=== PATIENT | male | born 1955 | race Caucasian/White ===

== ENCOUNTER 2020-08-06 10:15 | Emergency (ER) | payer MEDICAID ==
[~2020-08-06] VITALS: Ht 180.3 cm; Wt 86.0 kg
[2020-08-06] MEDS ORDERED: LIDOCAINE HCL/EPINEPHRINE 1%-EPI 1:100,000 20 ML VIAL INFIL ONE (10:45)
[2020-08-06] MEDS ORDERED: BACITRACIN ZINC OINT UDPKT TOP ONE (10:45)
[2020-08-06] MEDS ORDERED: HYDROCODONE/ACETAMINOPHEN 5/325MG TABLET PO ONE (10:45)
[2020-08-06] MEDS ORDERED: IBUP-2029 PO (12:49)
[2020-08-06] MEDS ORDERED: CEPH500T MT (12:49)
[2020-08-06 13:08] VITALS: BP 139/86
== END 2020-08-06 13:08 | disposition home or self-care (01) ==
LOC: ER 10:15
DX: S51.811A Laceration without foreign body of right forearm, initial encounter (principal); W01.0XXA Fall on same level from slipping, tripping and stumbling without subsequent striking against object, initial encounter; Y93.9 Activity, unspecified; Y92.89 Other specified places as the place of occurrence of the external cause
CPT/HCPCS: 12006; 99284; Z7610; 99285

== ENCOUNTER 2020-08-08 08:15 | Emergency (ER) | payer MEDICAID ==
[~2020-08-08] VITALS: Ht 172.7 cm; Wt 85.0 kg
[~2020-08-08 08:15] MED LIST: CEPH500T MT; IBUP-2029 PO
[2020-08-08 08:50] VITALS: BP 143/82
== END 2020-08-08 08:52 | disposition home or self-care (01) ==
LOC: ER 08:26
DX: Z48.00 Encounter for change or removal of nonsurgical wound dressing (principal)
CPT/HCPCS: 99281

== ENCOUNTER 2020-08-16 09:16 | Emergency (ER) | payer MEDICAID ==
[~2020-08-16] VITALS: Ht 157.5 cm; Wt 68.0 kg
[2020-08-16 10:24] VITALS: BP 134/83
== END 2020-08-16 10:38 | disposition home or self-care (01) ==
LOC: ER 09:23
DX: S41.111D Laceration without foreign body of right upper arm, subsequent encounter (principal); X58.XXXD Exposure to other specified factors, subsequent encounter
CPT/HCPCS: 99281; Z7610